=== PATIENT | female | born 1985 | race Caucasian/White ===

== ENCOUNTER 2020-03-13 01:33 | Emergency (ER) | payer BC, SELFPAY ==
[2020-03-13 01:36] VITALS: BP 119/95; PULSE 83; RESP 18; TEMP 36.8; O2SAT 100
--- NOTE | 2020-03-13 02:09 | ED.FEMALEGU ---
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 Patient states she was advised she had demise on ultrasound at EXECUTIVE VICE PRESIDENT AND CHIEF FINANCIAL OFFICER office last week and advised she was going to have a miscarriage. Patient states she started having cramping and bleeding last night and shortly after midnight had her miscarriage. Since that time, patient has been having significant bleeding with clots. Patient contacted assistant account manager who advised she come to the emergency department for evaluation of her bleeding. Patient states bleeding is actually starting to slow down now. She complains of cramping, predominantly in her low back. Patient reports nausea but denies any vomiting. MD elicited complaint: vaginal bleeding Pertinent past history: prior miscarriages Onset (ago): hour(s) Location of symptoms: suprapubic and low back Quality of pain: cramping Consistency: constant Vaginal bleeding: heavy, clots and POC/tissue (Passed at home) Associated symptoms: nausea Patient : Yes Related Data : 9 Para: 5 Total number of abortions (spontaneous and elective): 4 Home Medications Medication Instructions Recorded Confirmed albuterol sulfate 2 puff INHALATION Q4H PRN 10/29/19 11/02/19 Allergies Allergy/AdvReac Type Severity Reaction Status Date / Time Penicillins Allergy Mild RASH/DIFFICULTY Verified 03/13/20 04:32 BREATHING Review of Systems Review of Systems: All systems reviewed & are unremarkable except as noted in HPI and below PMFSH Past Medical History Medical History Asthma Spontaneous Surgical History Surgical History History of dilatation and curettage Social History Social History Smoking status: Never smoker Exam Const: General: cooperative, no acute distress and alert Nutritional Appearance: well nourished Orientation/consciousness: patient oriented x3 Limitations: no limitations HENMT: Mouth: Yes lip normal and Yes moist mucous membranes Resp: Effort & Inspection: normal respiratory effort Auscultation: clear to auscultation bilaterally Cardio: Rate: regular rate Rhythm: regular rhythm GI: GI Palp: Yes Soft to palpation and Yes Tenderness to palpation present (GI) (Mild suprapubic) Auscultation: normal bowel sounds : External Female Exam: normal external appearance Speculum Exam - Vagina: vaginal bleeding (Minimal dark red) Speculum Exam - Cervix: Cervical os closed Skin: General skin exam: normal color Neuro: General: patient oriented x3 Cognition (Neuro): normal cognition Speech: normal speech Extrem: General: normal to inspection, full ROM and no clubbing, cyanosis or edema Psych: Mental Status: mental status grossly normal Affect: normal affect Attitude: cooperative Course Course Emergency Course: Patient with resolution of her heavy bleeding status post miscarriage. Patient given RhoGam in the emergency department. Advised importance of EXECUTIVE VICE PRESIDENT AND CHIEF FINANCIAL OFFICER follow-up for serial hCG levels and further care. Vital Signs Vital signs: Vital Signs Temperature 98.2 F 03/13/20 01:36 Pulse Rate 83 03/13/20 01:36 Respiratory Rate 18 03/13/20 01:36 Blood Pressure 119/95 H 03/13/20 01:36 Pulse Oximetry 100 03/13/20 01:36 Temperature 98.2 F 03/13/20 01:36 Pulse Rate 88 03/13/20 02:12 Respiratory Rate 18 03/13/20 01:36 Blood Pressure 104/74 03/13/20 02:12 Pulse Oximetry 100 03/13/20 01:36 MDM - Female Genitourinary Medical Records Attestation: I reviewed the patient's medical records.
[2020-03-13 02:12] VITALS: BP 103/59; BP 104/74; BP 99/74; PULSE 71; PULSE 77; PULSE 88
[2020-03-13] MEDS: KETOROLAC 30 MG/ML VIAL (*BKC) IV PUSH (02:15)
[2020-03-13] MEDS: LACTATED RINGERS 1,000 ML 999 ML IV CONT (02:16)
[2020-03-13 02:24] LABS: Basophils Percent Auto 0.4 % (0.2-1.2); Eosinophils Absolute Auto 0.1 K/mm3 (0-0.3); Eosinophils Percent Auto 0.8 % (0-4.4); Hematocrit 37.8 % (37.0-47.0); Hemoglobin 12.6 g/dL (12.0-15.0); Immature Granulocyte Absolute 0.02 K/mm3 (0.00-0.031); Immature Granulocyte Percent A 0.3 % (0-0.5); Lymphocytes Absolute Auto 1.98 K/mm3 (0.9-3.2); Lymphocytes Percent Auto 25.8 % (18.3-44.2); Mean Corpuscular HGB Conc 33.3 g/dl (32-36); Mean Corpuscular Volume 86.9 fl (80-100); Mean Platelet Volume 9.7 fl (7.4-10.4); Monocytes Absolute Auto 0.6 K/mm3 (0.1-0.6); Monocytes Percent Auto 7.8 % (2.6-8.5); Neutrophils Percent Auto 64.9 % (45.5-73.1); Platelet Count Result 253 k/mm3 (150-375); Red Blood Count 4.35 M/mm3 (4.2-5.4); Red Cell Distribution Width 12.6 % (11.5-14.5); White Blood Count 7.7 K/mm3 (4.5-10.0)
[2020-03-13 02:27] LABS: Blood Urea Nitrogen 9 mg/dL (7-17); Carbon Dioxide 26 mmol/L (22-30); Chloride 104 mmol/L (98-107); Estimated CRCL calculation 102 ml/min; Estimated Glomerular Filt Rate > 60; Glucose 91 mg/dL (65-105); Potassium 3.7 mmol/L (3.4-5.0); Sodium 137 mmol/L (137-145)
[2020-03-13] MEDS: RHO(D) IMMUNE GLOBULIN 300 MCG SYRINGE IM (04:15)
[2020-03-13 04:41] VITALS: BP 112/70; PULSE 67; RESP 16; O2SAT 98
== END 2020-03-13 04:42 | disposition home or self-care (01) ==
PROVIDERS: Emergency Provider Emergency Medicine
DX: O03.9 Complete or unspecified spontaneous abortion without complication (principal); J45.909 Unspecified asthma, uncomplicated
CPT/HCPCS: 36415; 80048; 84702; 85025; 85461; 90384; 96361; 96372; 96374; 99284; J1885; J2790; J7120

== ENCOUNTER 2020-03-17 00:35 | Day surgery (SDC) | payer BC, SELFPAY ==
[2020-03-14 15:05] VITALS: BMI 22.8
[2020-03-17] MEDS: LACTATED RINGERS 1,000 ML 30 ML IV CONT (09:30)
[2020-03-17] MEDS: IBUPROFEN IV 800 MG/200 ML 800 MG/200 ML BAG 400 MG IVPB (09:35)
--- NOTE | 2020-03-17 09:42 | P.PNAN_ITS ---
Anes - Initial Pre Proc Eval Procedure: Operation Date: 03/17/20 11:00 Proposed Procedures p Suction Dilation and Curettage - Sunil Glasgow MD Date/Time: 03/17/20 09:42 Surgeon: Sunil Glasgow MD Pre Op Diagnosis: missed AB Patient Data Age: 35 Gender: F Height: 5 ft 2 in Weight: 56.7 kg Allergies Allergy/AdvReac Type Severity Reaction Status Date / Time Penicillins Allergy Mild RASH/DIFFICULTY Verified 03/14/20 15:06 BREATHING Home Medications Medication Instructions Recorded Confirmed Type albuterol sulfate 2 puff INHALATION Q4H PRN 10/29/19 03/14/20 History Patient hx anesthesia problems: none Family hx anesthesia problems: none [facility] Past Medical History Medical History Asthma Spontaneous Surgical History Surgical History History of dilatation and curettage Social History Social History Smoking status: Never smoker Anes - Eval Final PreProcedure Day of Procedure 03/17/20 09:42 Patient weight: normal Heart: regular rate and rhythm Lungs: clear to auscultation Airway: Mallampati scale class II Neurological: alert and oriented Last oral intake: >/= 8 hours ASA classification: II Emergent: no Anesthetic plan: proceed Anesthesia type and monitoring: general GIVS and standard monitoring Informed Consent: The patient's anesthetic plan and its attendant risks and benefits were discussed with the patient/family/POA. Questions were solicited and answers provided to the satisfaction of the patient/family/POA.
[2020-03-17 09:45] VITALS: BP 107/59; PULSE 70; RESP 16; TEMP 36.4; O2SAT 100
--- NOTE | 2020-03-17 09:50 | PM.IMHP ---
H&P: HPI History of Present Illness Chief complaint: missed AB Narrative: Malou Euceda is a 35 year old female with the incomplete . We have agreed to proceed with suction D&C. She understands the risks. She understands that injuries may occur that result in more surgery, hospitalization, severe illness. She understands there is risk of infection and hemorrhage. Review of Systems Constitutional: Constitutional: Reports no additional constitutional complaints, Denies fatigue, Denies headache(s), Denies lethargy and Denies weakness Eyes: Eyes: Reports no additional eye complaints, Denies blurry vision and Denies photophobia ENT: Reports as per HPI, Denies headache(s) and Denies neck pain Cardiovascular: Cardiovascular: Denies chest pain, Denies diaphoresis, Denies leg edema, Denies palpitations and Denies dyspnea Respiratory: Respiratory: Denies hemoptysis, Denies dyspnea and Denies wheezing Gastrointestinal: Gastrointestinal: Denies abdominal pain, Denies melena, Denies bloating, Denies hematochezia, Denies nausea and Denies vomiting Genitourinary: Genitourinary: Reports no additional female genitourinary complaints Musculoskeletal: Musculoskeletal: Denies joint swelling, Denies neck pain, Denies numbness and Denies stiffness Neurologic: Denies Abnormal speech present, Denies confusion, Denies headache(s), Denies numbness and Denies weakness Psychiatric: Psychiatric: Denies anxiety, Denies confusion, Denies depression, Denies homicidal ideation and Denies suicidal ideation Endocrine: Endocrine: Denies fatigue and Denies palpitations Allergic/Immunologic: Allergic/Immunologic: Denies wheezing PMFSH Past Medical History Medical History Asthma Spontaneous Surgical History Surgical History History of dilatation and curettage Social History Social History Smoking status: Never smoker Meds Home Medications and Allergies Home Medications Medication Instructions Recorded Confirmed Type albuterol sulfate 2 puff INHALATION Q4H PRN 10/29/19 03/17/20 History Allergies Allergy/AdvReac Type Severity Reaction Status Date / Time Penicillins Allergy Mild RASH/DIFFICULTY Verified 03/14/20 15:06 BREATHING Vital Signs Vital Signs - 24 hr 03/17/20 09:45 Temperature 97.5 F L Pulse Rate 70 Respiratory Rate 16 Blood Pressure 107/59 L Pulse Oximetry 100 Exam Const: General: healthy appearing, comfortable and no acute distress; No confusion Orientation/consciousness: No confusion Eyes: Direct Ophthalmoscopy: No photophobia Resp: Auscultation: clear to auscultation bilaterally, no rales, no rhonchi and no wheezes Cardio: Rate: regular rate Heart sounds: no click, no murmurs and no rubs GI: Inspection: non-distended GI Palp: No abdominal tenderness Auscultation: normal bowel sounds Neuro: General: No confusion Speech: No Abnormal speech present Extrem: General: normal to inspection, no pedal edema and no calf tenderness Assessment and Plan Assessment and plan (1) Missed : Code(s): O02.1 - Missed Status: Acute Assessment and Plan: This patient is a 35-year-old multiparous female with a missed . We have agreed to perform suction D&C. She understands the risks, benefits, and alternatives. She has completed the informed consent process and is ready to proceed.
[2020-03-17 10:01] LABS: Hematocrit 37.5 % (37.0-47.0); Hemoglobin 12.3 g/dL (12.0-15.0)
[2020-03-17 10:28] VITALS: BP 98/54; PULSE 65; RESP 14; O2SAT 100
--- NOTE | 2020-03-17 10:36 | P.OP_ITS ---
Procedure Note - Detailed Date of procedure: 03/17/20 Pre-op diagnosis: missed AB Post-op diagnosis: same Procedure performed: Suction D&C Description of procedure: The patient was taken the operating room. She has prepped and draped in dorsal lithotomy position after induction of mac anesthesia. A speculum was placed in the vagina. The cervix was grasped with a tenaculum. The cervix was injected at 3 and 9:00 a.m. with 1% lidocaine. The cervix was dilated up to 8 mm using Funes dilators. An 8 curved plastic suction curette was then applied to the intrauterine cavity. All of the surfaces in the intrauterine cavity were curettage under VAC. A sharp medium-size curette was then used to curettage all the surfaces to confirmed the removal of all the products conception. When all surfaces for bleed to be clean the curette was r emoved. The suction curette was then reapplied to remove all the debris. The procedure was terminated. The tenaculum was removed. The speculum was removed. The patient tolerated the procedure well. She was taken recovery room in stable condition. Anesthesia: MAC Surgeon: Sunil Glasgow MD Estimated blood loss (mL): 25 Drains: No Packing: No Pathology: yes Complications: No immediate complications Condition: stable Disposition: PACU Findings: Normal vulva vagina and cervix. The moderate amounts of products conception. 8 cm uterus.
--- NOTE | 2020-03-17 10:40 | SUR.PHASEII ---
1030; PT RESTING QUIETLY ON STRETCHER IN ROOM. SPOUSE AT SIDE.
[2020-03-17 11:00] VITALS: BP 101/49; PULSE 61; RESP 16; O2SAT 100
[2020-03-17 11:30] VITALS: BP 99/63; PULSE 62; RESP 14
--- NOTE | 2020-03-17 12:26 | SUR.PREOP ---
0914- SPOKE WITH DR. BRADY ABOUT PT RECEIVING RHOGRAM SHOT ON FRIDAY EVENING IN THE ED AT [facility]. DR. BRADY STATED PT DOES NOT NEED A REPEAT DOSE TODAY AFTER PROCEDURE. OR NURSE UPDATED DURING REPORT.
== END 2020-03-17 12:07 | disposition home or self-care (01) ==
PROVIDERS: Visit Provider Obstetrics & Gynecology
PROC: (CPT 59820; principal; 2020-03-17 11:00)
DX: O02.1 Missed abortion (principal); J45.909 Unspecified asthma, uncomplicated
CPT/HCPCS: 59820; 36415; 85014; 85018; 85461; 86880; 86902; 88305; A9270; J1741; J2250; J2405; J2704; J3010; J7120

== ENCOUNTER 2020-10-26 13:48 | Emergency (ER) | payer BC, SELFPAY ==
[2020-10-26] VITALS (12 sets, daily range): BP systolic 98–139; BP diastolic 45–78; PULSE 68–99; RESP 16–18; TEMP 36.3; O2SAT 100
--- NOTE | ~2020-10-26 | US_ITS ---
EXAMINATION: US OB <= 14 weeks fetus DATE: 10/26/2020 14:49 INDICATION: Vaginal bleeding TECHNIQUE: Real-time transabdominal and transvaginal obstetric ultrasound. FINDINGS: No prior studies for comparison. The uterus measures 11.3 x 8.5 x 7.5 cm. There is a small subchorionic hemorrhage adjacent to the ges tational sac measuring 9 x 8 x 6 mm. There is an intrauterine gestational sac, with pole identi fied. The crown rump length measures 4.88 cm, which correlates with a estimated gestational age of 1 1 weeks 5 days. heart tones are identified measuring 157 BPM. There is a small 1.4 cm corpus luteal cyst of the right ovary. IMPRESSION: 1. SL IUP with an EGA of 11 weeks, 5 days (EDC by current ultrasound of 05/12/2021). 2: Small subchorionic hemorrhage. Reviewed, dictated and finalized at location A. USTER ENGINEER IMPRESSION: 1. SL IUP with an EGA of 11 weeks, 5 days (EDC by current ultrasound of 021). 2: Small subchorionic hemorrhage.
--- NOTE | 2020-10-26 14:19 | PC.NURSE ---
Pt to ultrasound.
[2020-10-26 14:57] LABS: Basophils Percent Auto 0.2 % (0.2-1.2); Eosinophils Percent Auto 0.2 % (0-4.4); Hematocrit 38.1 % (37.0-47.0); Hemoglobin 13.1 g/dL (12.0-15.0); Immature Granulocyte Absolute 0.01 K/mm3 (0.00-0.031); Immature Granulocyte Percent A 0.1 % (0-0.5); Lymphocytes Absolute Auto 1.86 K/mm3 (0.9-3.2); Lymphocytes Percent Auto 22.8 % (18.3-44.2); Mean Corpuscular HGB Conc 34.4 g/dl (32-36); Mean Corpuscular Hemoglobin 29.2 pg (26-34); Mean Platelet Volume 9.9 fl (7.4-10.4); Monocytes Absolute Auto 0.6 K/mm3 (0.1-0.6); Monocytes Percent Auto 7.1 % (2.6-8.5); Neutrophils Absolute Auto 5.7 K/mm3 (1.3-6.7); Neutrophils Percent Auto 69.6 % (45.5-73.1); Platelet Count Result 267 k/mm3 (150-375); Red Blood Count 4.48 M/mm3 (4.2-5.4); Red Cell Distribution Width 12.9 % (11.5-14.5); White Blood Count 8.2 K/mm3 (4.5-10.0)
[2020-10-26 15:06] LABS: Prothrombin Time 13.4 Seconds (11.1-14.7)
[2020-10-26 15:07] LABS: Partial Thromboplastin Time 24.4 SECONDS (22.3-36.8)
[2020-10-26 15:10] LABS: Add Urine Microscopic? YES; Amorphous Sediment Urine Few; Appearance Urine Clear (Clear); Bacteria Urine Trace /hpf; Bilirubin Urine Negative (Negative); Blood Urine 3+ (Negative); Color Urine Yellow (Yellow); Glucose Urine UA Negative (Negative); Ketones Urine Negative (Negative); Leukocyte Esterase Ur Negative LEU/UL (Negative); Mucus Urine Few /lpf; Nitrate Urine Negative (Negative); Protein Urine 1+ mg/dL (Negative); RBC Urine >75 /hpf (0-2); Specific Grav Ur 1.011 (1.001-1.035); Squamous Epithelial Cell Urine Rare /hpf (Few); Urobilinogen Urine Negative mg/dL (<2.0); WBC Urine 0-3 /hpf
[2020-10-26 15:14] LABS: Alanine Aminotransferase 15 U/L (4-35); Albumin Level 4.3 g/dL (3.5-5.1); Alkaline Phosphatase 38 U/L (38-126); Anion Gap 10 mmol/L (8-16); Aspartate Amino Transferase 28 U/L (14-36); Bilirubin,Total 0.5 mg/dL (0.2-1.3); Blood Urea Nitrogen 8 mg/dL (7-17); Calcium 9.2 mg/dL (8.4-10.2); Carbon Dioxide 23 mmol/L (22-30); Chloride 104 mmol/L (98-107); Estimated CRCL calculation 103 ml/min; Estimated Glomerular Filt Rate > 60; Glucose 100 mg/dL (65-105); Potassium 3.9 mmol/L (3.4-5.0); Sodium 137 mmol/L (137-145)
[2020-10-26] MEDS: SODIUM CHLORIDE 0.9% IV 1,000 ML 999 ML IV CONT (15:58)
--- NOTE | 2020-10-26 16:04 | ED.GENADULT ---
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 Patient states that she felt a pressure-like sensation so she sat on the toilet and questions if she was going to have a bowel movement but instead thin bright red discharge came out. Patient denies any pain or cramping but states she filled a pad in 1-1.5 hours. She states she has not seen her OBGYN Lorenzo/Benjamin yet for this as she was waiting to see if she could get thru the first trimester as she has had 3 miscarriages in the last 2 years around the end of the first trimester.She reports she has an appointment on Friday. She states her last menstrual period was around Aug 05. Patient states that her last miscarriage was in March and she received a RhoGam injection at that time because her blood type is A-. Related Data Home Medications Medication Instructions Recorded Confirmed No Home Medications 10/26/20 10/26/20 Allergies Allergy/AdvReac Type Severity Reaction Status Date / Time Penicillins Allergy Mild RASH/DIFFICULTY Verified 10/26/20 14:01 BREATHING Review of Systems Review of Systems: Narrative: CONSTITUTIONAL: Denies fever, chills, or sweats. EYES: Denies visual changes, redness, or discharge. ENT: Denies rhinorrhea, congestion, sore throat, or otalgia. CARDIOVASCULAR: Denies chest pain, palpitations, or edema. RESPIRATORY: Denies cough or dyspnea. GASTROINTESTINAL: Denies abdominal pain, nausea, vomiting, or diarrhea. GENITOURINARY: Reports vaginal bleeding denies dysuria or hematuria. SKIN: Denies rash or itching. MUSCULOSKELETAL: Denies back pain, joint pain, or myalgia. NEUROLOGIC: Denies headache, numbness, dizziness, or weakness. PSYCHIATRIC: Denies anxiety or depression. [facility] Past Medical History Medical History (Updated 10/26/20 @ 17:11 by Lor Braxton PA-C) Asthma Spontaneous Surgical History Surgical History History of dilatation and curettage Social History Social History Smoking status: Never smoker Exam Narrative: Exam Narrative: GENERAL: Well-appearing, well-nourished, and in no acute distress. HEAD: Normocephalic, atraumatic. EYES: PERRLA and EOMI. NECK: Supple. No adenopathy or masses. CHEST: Clear to auscultation. No respiratory distress. No wheezes rales or rhonchi HEART: Regular rate and rhythm. No murmur heard. Normal peripheral pulses. ABDOMEN: Soft, nontender, nondistended, normal active bowel sounds. EXTREMITIES: Normal range of motion. No edema. SKIN: Warm, dry, no rash. NEURO: No focal deficits. Alert and oriented x3. PSYCH: Normal mood and affect. Course Vital Signs Vital signs: Vital Signs Temperature 97.3 F L 10/26/20 13:58 Pulse Rate 99 10/26/20 13:58 Respiratory Rate 18 10/26/20 13:58 Blood Pressure 139/67 10/26/20 13:58 Pulse Oximetry 100 10/26/20 13:58 Temperature 97.3 F L 10/26/20 13:58 Pulse Rate 85 10/26/20 14:58 Respiratory Rate 16 10/26/20 15:16 Blood Pressure 112/59 L 10/26/20 16:32 Pulse Oximetry 100 10/26/20 13:58 Medical Decision Making MDM Narrative Medical decision making narrative: Consult with Dr. Ventura who states patient's work-up has been appropriate. I discussed with him that it was difficult to directly visualize patient cervix as patient admits that her cervix is retroverted and she was having trouble tolerating maneuvering of speculum for better visual assessment due to pressure and discomfort. He states the patient can be started on 200 mg of progesterone daily. He also states that patient should receive
[2020-10-26] MEDS: RHO(D) IMMUNE GLOBULIN 300 MCG SYRINGE IM (17:43)
== END 2020-10-26 18:35 | disposition home or self-care (01) ==
PROVIDERS: Physician Assistant; Emergency Provider Emergency Medicine
DX: O46.8X1 Other antepartum hemorrhage, first trimester (principal); Z3A.11 11 weeks gestation of pregnancy
CPT/HCPCS: 36415; 76801; 80053; 81001; 84702; 85025; 85461; 85610; 85730; 90384; 96360; 96372; 99284; J2790; J7030

== ENCOUNTER 2020-11-18 04:29 | Outpatient (CLI) | payer BC, SELFPAY ==
[2020-11-18 19:32] LABS: SARS-CoV-2 RNA PCR Negative
== END 2020-11-18 04:30 | disposition home or self-care (01) ==
LOC: ANHCOVIDDT 04:30
PROVIDERS: Visit Provider Obstetrics & Gynecology
DX: Z01.812 Encounter for preprocedural laboratory examination (principal); Z20.822 Contact with and (suspected) exposure to COVID-19
CPT/HCPCS: C9803; U0003

== ENCOUNTER 2020-11-21 01:03 | Day surgery (SDC) | payer BC, SELFPAY ==
[2020-11-17 16:47] VITALS: BMI 21.7
[2020-11-21] VITALS (7 sets, daily range): BP systolic 82–126; BP diastolic 42–63; PULSE 55–95; RESP 16–20; TEMP 36.5; O2SAT 95–100
[2020-11-21] MEDS: LACTATED RINGERS 1,000 ML 30 ML IV CONT ×2 (13:20→17:01)
[2020-11-21] MEDS: ACETAMINOPHEN 500 MG TABLET 1000 MG PO (13:24)
--- NOTE | 2020-11-21 14:14 | WPDANESEPPF ---
Anes - Initial Pre Proc Eval Procedure: Operation Date: 11/21/20 15:00 Proposed Procedures p Suction Dilation And Curettage - Sunil Glasgow MD Date/Time: 11/21/20 14:14 Surgeon: Sunil Glasgow MD Pre Op Diagnosis: Missed Ab Patient Data Age: 35 Gender: F Height: 5 ft 2 in Weight: 53.98 kg Allergies Allergy/AdvReac Type Severity Reaction Status Date / Time Penicillins Allergy Mild RASH/DIFFICULTY Verified 11/17/20 16:54 BREATHING Home Medications Medication Instructions Recorded Confirmed Type No Home Medications 10/26/20 10/26/20 History Patient hx anesthesia problems: none Family hx anesthesia problems: none [facility] Past Medical History Medical History Asthma Spontaneous Surgical History Surgical History History of dilatation and curettage Social History Social History Smoking status: Never smoker Living arrangements: with family Gender identity (if verbalized by the patient): Female Spiritual care concerns: No Anes - Eval Final PreProcedure Day of Procedure 11/21/20 14:14 Patient weight: normal Heart: regular rate and rhythm Lungs: clear to auscultation Airway: Mallampati scale class II Neurological: alert and oriented Last oral intake: >/= 8 hours ASA classification: II Emergent: no Anesthetic plan: proceed Anesthesia type and monitoring: general GIVS and standard monitoring Informed Consent: The patient's anesthetic plan and its attendant risks and benefits were discussed with the patient/family/POA. Questions were solicited and answers provided to the satisfaction of the patient/family/POA.
--- NOTE | 2020-11-21 14:41 | WPDHPUPDATE1 ---
History and Physical Update Update Date/Time: 11/21/20 14:41 History and Physical has been reviewed, including an updated exam of the patient. There are NO changes in the patient's condition. Risks, benefits, and alternatives have been discussed and questions answered. Patient agrees to proceed with procedure.
--- NOTE | 2020-11-21 14:41 | PM.IMHP ---
H&P: HPI History of Present Illness Date/Time: 11/21/20 14:41 Chief Complaint: Missed miscarriage Narrative: Malou Euceda is a 35 year old female, multiparous, who has a 13 week demise. We have agreed to perform suction D&C. Patient understands the risks. She understands that injuries may occur. She understands that injuries could result in hospitalization, more surgery, severe illness. She understands the possibility hemorrhage and infection. Review of Systems Constitutional: Constitutional: Reports no additional constitutional complaints, Denies fatigue, Denies headache(s), Denies lethargy and Denies weakness Eyes: Eyes: Reports no additional eye complaints, Denies blurry vision and Denies photophobia ENT: Reports as per HPI, Denies headache(s) and Denies neck pain Cardiovascular: Cardiovascular: Denies chest pain, Denies diaphoresis, Denies leg edema, Denies palpitations and Denies dyspnea Respiratory: Respiratory: Denies hemoptysis, Denies dyspnea and Denies wheezing Gastrointestinal: Gastrointestinal: Denies abdominal pain, Denies melena, Denies bloating, Denies hematochezia, Denies nausea and Denies vomiting Genitourinary: Genitourinary: Reports no additional female genitourinary complaints Musculoskeletal: Musculoskeletal: Denies joint swelling, Denies neck pain, Denies numbness and Denies stiffness Neurologic: Denies Abnormal speech present, Denies confusion, Denies headache(s), Denies numbness and Denies weakness Psychiatric: Psychiatric: Denies anxiety, Denies confusion, Denies depression, Denies homicidal ideation and Denies suicidal ideation Endocrine: Endocrine: Denies fatigue and Denies palpitations Allergic/Immunologic: Allergic/Immunologic: Denies wheezing PMFSH Past Medical History Medical History Asthma Spontaneous Surgical History Surgical History History of dilatation and curettage Social History Social History Smoking status: Never smoker Living arrangements: with family Gender identity (if verbalized by the patient): Female Spiritual care concerns: No Meds Home Medications and Allergies Home Medications Medication Instructions Recorded Confirmed Type No Home Medications 10/26/20 10/26/20 History Allergies Allergy/AdvReac Type Severity Reaction Status Date / Time Penicillins Allergy Mild RASH/DIFFICULTY Verified 11/17/20 16:54 BREATHING Exam Const: General: healthy appearing, comfortable and no acute distress; No confusion Orientation/consciousness: No confusion Eyes: Direct Ophthalmoscopy: No photophobia Resp: Auscultation: clear to auscultation bilaterally, no rales, no rhonchi and no wheezes Cardio: Rate: regular rate Heart sounds: no click, no murmurs and no rubs GI: Inspection: non-distended GI Palp: No abdominal tenderness Auscultation: normal bowel sounds Neuro: General: No confusion Speech: No Abnormal speech present Extrem: General: normal to inspection, no pedal edema and no calf tenderness Assessment and Plan Assessment and plan (1) Missed : Code(s): O02.1 - Missed Status: Acute Assessment and Plan: This patient is a 35-year-old female with a 13 week intrauterine demise. We have agreed to perform suction D&C She understands risks, benefits, and alternatives. She has completed the informed consent process is ready to proceed.
[2020-11-21] MEDS: LIDOCAINE HCL 1% LOCAL INJ 10 ML VIAL INFILTRATE (15:05)
--- NOTE | 2020-11-21 15:22 | P.OP_ITS ---
Procedure Note - Detailed Date of procedure: 11/21/20 Pre-op diagnosis: Missed Ab Post-op diagnosis: same Procedure performed: Suction D&C Description of procedure: The patient was taken the operating room. She has prepped and draped in dorsal lithotomy position after induction of mac anesthesia. A speculum was placed in the vagina. The cervix was grasped with a tenaculum. The cervix was injected at 3 and 9:00 a.m. with 1% lidocaine. The cervix was dilated up to 8 mm using Funes dilators. An 8 curved plastic suction curette was then applied to the intrauterine cavity. All of the surfaces in the intrauterine cavity were curettage under VAC. A sharp medium-size curette was then used to curettage all the surfaces to confirmed the removal of all the products conception. When all surfaces for bleed to be clean the curette was r emoved. The suction curette was then reapplied to remove all the debris. The procedure was terminated. The tenaculum was removed. The speculum was removed. The patient tolerated the procedure well. She was taken recovery room in stable condition. Anesthesia: MAC Surgeon: Sunil Glasgow MD Estimated blood loss (mL): 25 Drains: No Packing: No Pathology: yes Complications: No immediate complications Condition: stable Disposition: PACU Findings: Normal vulva vagina and cervix. The large amount of products conception. 13 cm uterus.
--- NOTE | 2020-11-21 15:34 | SUR.PHASEII ---
[address] BRADY IN REGARDS TO PTS BLOOD TYPE A NEGATIVE. PT RECEIVED RHOGAM IN OUR E.D. 10/26/20. DR BRADY STATES PT DOES NOT NEED TO RECEIVE ANOTHER DOSE OF RHOGAM TODAY.
[2020-11-21] MEDS: oxyCODONE HCL (*CRX) 5 MG TAB IR PO (16:14)
[2020-11-21] MEDS: ONDANSETRON INJ 4 MG/2 ML VIAL IV PUSH (16:42)
== END 2020-11-21 17:48 | disposition home or self-care (01) ==
PROVIDERS: Visit Provider Obstetrics & Gynecology
PROC: (CPT 59820; principal; 2020-11-21 15:00)
DX: O02.1 Missed abortion (principal)
CPT/HCPCS: 59820; 88305; A9270; J2250; J2405; J2704; J7120

== ENCOUNTER → 2022-12-20 14:44 | Outpatient (CLI) | payer OTHER, SELFPAY ==
--- NOTE | ~2022-12-20 | US_ITS ---
EXAMINATION: US OB transvaginal DATE: 12/20/2022 15:12 INDICATION: First trimester . Uncertain dates. TECHNIQUE: Real-time transvaginal pelvic ultrasound was performed. COMPARISON: None. FINDINGS: The uterus measures 7.3 x 5.7 x 6.2 cm. There is an intrauterine gestational sac. A yolk sac is iden tified. The crown rump length measures 2.1 cm, which correlates with an estimated gestational age of 8 weeks and 5 day(s) (+/-) 5 day(s). heart motion is identified measuring 165 beats per minute (bpm) by M-mode Doppler. The right ovary measures 2.3 x 3.7 x 2.4 cm. The left ovary measures 2.9 x 2.6 x 2.4 cm. There is no free fluid in the pelvis. IMPRESSION: 1. Single living intrauterine gestation with estimated date of delivery of 07/27/2023. Reviewed, dictated and finalized at location A. EL MOTOR MECHANIC IMPRESSION: 1. Single living intrauterine gestation with estimated date of delivery of 07/11.
== END ==
DX: Z34.91 Encounter for supervision of normal pregnancy, unspecified, first trimester (principal); Z3A.00 Weeks of gestation of pregnancy not specified
CPT/HCPCS: 76817

== ENCOUNTER 2023-02-01 18:15 | Emergency (ER) | payer OTHER, SELFPAY ==
[2023-02-01 18:19] VITALS: BP 116/56; PULSE 93; RESP 16; TEMP 36.9; O2SAT 100
[2023-02-01 19:27] LABS: Basophils Percent Auto 0.3 % (0.2-1.2); Eosinophils Percent Auto 0.3 % (0-4.4); Hematocrit 34.8 % (37.0-47.0); Hemoglobin 11.8 g/dL (12.0-15.0); Immature Granulocyte Absolute 0.04 K/mm3 (0.00-0.031); Immature Granulocyte Percent A 0.4 % (0-0.5); Lymphocytes Absolute Auto 2.19 K/mm3 (0.9-3.2); Lymphocytes Percent Auto 22.4 % (18.3-44.2); Mean Corpuscular HGB Conc 33.9 g/dl (32-36); Mean Corpuscular Hemoglobin 29.9 pg (26-34); Mean Corpuscular Volume 88.3 fl (80-100); Mean Platelet Volume 8.9 fl (7.4-10.4); Monocytes Absolute Auto 0.8 K/mm3 (0.1-0.6); Monocytes Percent Auto 8.3 % (2.6-8.5); Neutrophils Absolute Auto 6.7 K/mm3 (1.3-6.7); Neutrophils Percent Auto 68.3 % (45.5-73.1); Platelet Count Result 270 k/mm3 (150-375); Red Blood Count 3.94 M/mm3 (4.2-5.4); Red Cell Distribution Width 12.5 % (11.5-14.5); White Blood Count 9.8 K/mm3 (4.5-10.0)
--- NOTE | 2023-02-01 20:28 | ED.GENADULT ---
HPI - General Adult General Chief complaint: Vaginal Bleeding Stated complaint: vaginal bleeding Time Seen by Provider: 02/01/23 19:19 History of Present Illness HPI narrative: Patient 38-year-old female who presents the emergency department with chief complaint of vaginal bleeding. The patient reports she is about 15 weeks and noticed that she had some spotting. Patient reports the bleeding has been less than a full pad patient denies pain or cramping patient reports she has had a formal ultrasound with a documented IUP the patient is Rh- and reports that she has had previous doses of RhoGAM but states that her partner is also Rh- and she is unsure of whether she would want to do additional doses of RhoGAM Related Data Home Medications Medication Instructions Recorded Confirmed No Home Medications 10/26/20 11/21/20 Allergies Allergy/AdvReac Type Severity Reaction Status Date / Time Penicillins Allergy Mild RASH/DIFFICULTY Verified 02/01/23 18:16 BREATHING Review of Systems Review of Systems: A 10 system review of systems was completed on the patient and is negative except for what is stated in the HPI. Nursing and ancillary documentation was reviewed. [facility] Past Medical History Medical History (Updated 02/01/23 @ 20:51 by Petar Chang MD) Asthma Spontaneous Surgical History Surgical History History of dilatation and curettage Social History Social History Smoking status: Never smoker Living arrangements: with family Gender identity (if verbalized by the patient): Female Spiritual care concerns: No Exam Narrative: GENERAL: Well-appearing, well-nourished, and in no acute distress. HEAD: Normocephalic, atraumatic. EYES: PERRLA and EOMI. ENT: Nares clear, no rhinorrhea or epistaxis. Mucous membranes moist. NECK: Supple. CHEST: Clear to auscultation. No respiratory distress. HEART: Regular rate and rhythm. No murmur heard. Normal peripheral pulses. ABDOMEN: Soft, nontender, nondistended, normal active bowel sounds. : Cervix is closed scant amount of blood in the vault EXTREMITIES: Normal range of motion. No edema. SKIN: Warm, dry, no rash. NEURO: No focal deficits. Alert and oriented x3. PSYCH: Normal mood and affect. Course Vital Signs Vital signs: Vital Signs Temperature 36.9 C 02/01/23 18:19 Pulse Rate 93 02/01/23 18:19 Respiratory Rate 16 02/01/23 18:19 Blood Pressure 116/56 L 02/01/23 18:19 Pulse Oximetry 100 02/01/23 18:19 Oxygen Delivery Room Air 02/01/23 18:19 Temperature 36.9 C 02/01/23 18:19 Pulse Rate 93 02/01/23 18:19 Respiratory Rate 16 02/01/23 18:19 Blood Pressure 116/56 L 02/01/23 18:19 Pulse Oximetry 100 02/01/23 18:19 Oxygen Delivery Room Air 02/01/23 18:19 Procedures Other Procedure Procedure 1: Other Procedure: Bedside transabdominal ultrasound performed that showed an intrauterine with good cardiac activity. Medical Decision Making MDM Narrative Medical decision making narrative: Differential diagnosis includes threatened , missed Patient's hemoglobin was 11.8 hCG was [address] Patient is Rh- Vital Signs Vital Signs: Vital Signs Temperature 36.9 C 02/01/23 18:19 Pulse Rate 93 02/01/23 18:19 Respiratory Rate 16 02/01/23 18:19 Blood Pressure 116/56 L 02/01/23 18:19 Pulse Oximetry 100 02/01/23 18:19 Oxygen Delivery Room Air 02/01/23 18:19 Temperature 36.9 C 02/01/23 18:19 Pulse Rate 93 02/01/23 18:19 Respiratory Rate 16 02/01/23 18:19 Blood Pressure 116/56 L 02/01/23 18:19 Pulse Oximetry 100 02/01/23 18:19 Oxygen Delivery Room Air 02/01/23 18:19 Lab Data 02/01/23 19:21 Labs: Lab Results 02/01/23 02/01/23 02/01/23 Range/Units 19:21 19
== END 2023-02-01 21:26 | disposition home or self-care (01) ==
PROVIDERS: Preventive Medicine Aerospace Medicine; Emergency Provider Emergency Medicine
DX: O20.0 Threatened abortion (principal); Z3A.15 15 weeks gestation of pregnancy
CPT/HCPCS: 36415; 84702; 85025; 85461; 86850; 86900; 86901; 99284

== ENCOUNTER → 2023-03-31 08:48 | Outpatient (CLI) | payer OTHER, SELFPAY ==
--- NOTE | ~2023-03-31 | US_ITS ---
US OB limited 03/31/2023 09:11 Indication: Evaluate low lying placenta. Procedure: High-resolution Limited obstetrical ultrasound Comparison: 12/20/2022 Findings: There is a single living intrauterine in vertex presentation. Placenta is anterio r and left measuring 4.9 cm to the cervix. Amniotic fluid volume is subjectively normal. heart rate is 146 BPM. Impression: 1: Single living intrauterine in vertex presentation. 2: Anterior placenta without previa. Placental margin to the cervix is 4.9 cm. Reviewed, dictated and finalized at location B. Impression: 1: Single living intrauterine in vertex presentation. 2: Anterior placenta without previa. Placental margin to the cervix is 4.9 cm.
== END ==
PROVIDERS: PCP Obstetrics & Gynecology Gynecology; Visit Provider Obstetrics & Gynecology Gynecology
DX: O44.10 Complete placenta previa with hemorrhage, unspecified trimester (principal); Z3A.00 Weeks of gestation of pregnancy not specified
CPT/HCPCS: 76815

== ENCOUNTER 2023-06-26 10:18 | Outpatient (CLI) | payer OTHER, SELFPAY ==
--- NOTE | ~2023-06-26 | US_ITS ---
EXAMINATION: US OB follow up DATE: 06/26/2023 10:48 INDICATION: Shoulder dysplasia TECHNIQUE: Real-time ultrasound of the pelvis was performed. The interpreting radiologist was not pre sent for the study. COMPARISON: None. FINDINGS: There is a single living fetus in vertex presentation. The placenta is anterior and not low-lying wi th caudal margin >7 cm from the internal cervical os. heart rate is 161 beats per minute (bpm). The amniotic fluid index is 17.9 cm, which is normal (5th%-95%: 7.9-24.9 cm at 35 weeks estimated g estational age). The following biometric data were obtained: BPD: 9.1 cm -> 36 weeks 5 days Head circumference: 32.4 cm -> 36 weeks 4 days Abdominal circumference: 33.0 cm -> 36 weeks 6 days Femur length: 6.7 cm -> 34 weeks 2 days These measurements are concordant. Head circumference to abdominal circumference ratio: 0.98 (normal range 0.92-1.08). Estimated weight: 2870 g (+/-) 430 g or 6 lbs. 5 oz. (+/-) 15 oz. IMPRESSION: 1. Single living fetus in vertex presentation with heart rate of 161 bpm. 2. Normal amniotic fluid index of 17.9 cm. 3. Estimated weight is 67th percentile by Hadlock criteria when 07/27/2023 is used as the estima catherine date of delivery (ROCHELLE). Please correlate with clinical information or earlier ultrasounds for mos t accurate ROCHELLE. Reviewed, dictated and finalized at location A. IMPRESSION: 1. Single living fetus in vertex presentation with heart rate of 161 bpm. 2. Normal amniotic fluid index of 17.9 cm. 3. Estimated weight is 67th percentile by Hadlock criteria when 07/27/2023 is used as the estimated date of delivery (ROCHELLE). Please correlate with clinica l information or earlier ultrasounds for most accurate ROCHELLE.
== END 2023-06-26 10:19 ==
PROVIDERS: PCP Obstetrics & Gynecology Gynecology; Visit Provider Obstetrics & Gynecology Gynecology
DX: Z34.90 Encounter for supervision of normal pregnancy, unspecified, unspecified trimester (principal); Z3A.00 Weeks of gestation of pregnancy not specified
CPT/HCPCS: 76816

== ENCOUNTER 2023-07-10 10:12 | Outpatient (CLI) | payer OTHER, SELFPAY ==
[2023-07-10] VITALS (7 sets, daily range): BP systolic 119–136; BP diastolic 65–76; PULSE 71–88; BMI 28.0
[2023-07-10 10:49] LABS: Basophils Percent Auto 0.3 % (0.2-1.2); Eosinophils Percent Auto 0.4 % (0-4.4); Hematocrit 36.4 % (37.0-47.0); Hemoglobin 12.1 g/dL (12.0-15.0); Immature Granulocyte Absolute 0.08 K/mm3 (0.00-0.031); Immature Granulocyte Percent A 0.9 % (0-0.5); Lymphocytes Absolute Auto 1.85 K/mm3 (0.9-3.2); Lymphocytes Percent Auto 20.3 % (18.3-44.2); Mean Corpuscular HGB Conc 33.2 g/dl (32-36); Mean Corpuscular Hemoglobin 29.7 pg (26-34); Mean Corpuscular Volume 89.4 fl (80-100); Mean Platelet Volume 10.4 fl (7.4-10.4); Monocytes Absolute Auto 0.8 K/mm3 (0.1-0.6); Monocytes Percent Auto 8.9 % (2.6-8.5); Neutrophils Absolute Auto 6.3 K/mm3 (1.3-6.7); Neutrophils Percent Auto 69.2 % (45.5-73.1); Platelet Count Result 234 k/mm3 (150-375); Red Blood Count 4.07 M/mm3 (4.2-5.4); Red Cell Distribution Width 12.9 % (11.5-14.5); White Blood Count 9.1 K/mm3 (4.5-10.0)
[2023-07-10 10:55] LABS: Appearance Urine Clear (Clear); Bacteria Urine None Seen /hpf; Bilirubin Urine Negative (Negative); Blood Urine 2+ (Negative); Color Urine Yellow (Yellow); Glucose Urine UA Negative (Negative); Ketones Urine Negative (Negative); Leukocyte Esterase Ur Trace LEU/UL (Negative); Nitrate Urine Negative (Negative); Non Pathogenic Casts 0-2; Protein Urine Negative (Negative); RBC Urine 0-2 /hpf (0-2); Specific Grav Ur 1.008 (1.001-1.035); Squamous Epithelial Cell Urine Occasional /hpf (Few); Urobilinogen Urine 0.2 mg/dL (<2.0); WBC Urine 0-5 /hpf
[2023-07-10 10:56] LABS: Add Urine Microscopic? YES; Creatinine Urine 29.6 mg/dL; Total Protein Urine Random 19 mg/dL; Ur Ttl Prot Creatinine Ratio 0.64 mg/mg (0-0.20)
[2023-07-10 11:06] LABS: Alanine Aminotransferase 15 U/L (6-35); Albumin Level 3.5 g/dL (3.5-5.1); Alkaline Phosphatase 136 U/L (38-126); Anion Gap 6 mmol/L (8-16); Aspartate Amino Transferase 27 U/L (14-36); Bilirubin,Total 0.4 mg/dL (0.2-1.3); Blood Urea Nitrogen 6 mg/dL (7-17); Calcium 9.4 mg/dL (8.4-10.2); Carbon Dioxide 26 mmol/L (22-30); Chloride 102 mmol/L (98-107); Estimated Glomerular Filt Rate > 60; Glucose 90 mg/dL (65-110); Potassium 3.6 mmol/L (3.4-5.0); Sodium 134 mmol/L (137-145); Uric Acid 4.4 mg/dL (2.5-7.5)
--- NOTE | 2023-07-10 11:22 | PC.NURSE ---
Dr. Richmond returned page and informed of reactive NST, BP's, and lab results. Pt to complete 24 hr urine at home, bring back in am and call office 2 hrs later to discuss results.
--- NOTE | 2023-07-10 11:45 | PC.NURSE ---
Pt has ordered lunch and will eat prior to going home.
== END 2023-07-10 12:42 | disposition home or self-care (01) ==
LOC: ANHOBOP 10:17 → ANHOBPP 10:17
PROVIDERS: Visit Provider Obstetrics & Gynecology Gynecology
DX: O13.9 Gestational [pregnancy-induced] hypertension without significant proteinuria, unspecified trimester (principal); Z3A.00 Weeks of gestation of pregnancy not specified
CPT/HCPCS: 36415; 59025; 80053; 81001; 82570; 84156; 84550; 85025; 99199

== ENCOUNTER 2023-07-11 10:55 | Outpatient (NON) | payer OTHER, SELFPAY ==
[2023-07-11 11:15] VITALS: BMI 28.0
[2023-07-11 12:43] LABS: Collection Time Urine 24 HOURS
[2023-07-11 13:04] LABS: Creatinine Urine 57.6 mg/dL; Patient Weight 153 Lbs
[2023-07-11 13:12] LABS: Total Protein Urine Random 20 mg/dL
[2023-07-11 13:37] LABS: Creatinine Clearance Urine 162.8 ml/min (75-125); Total Protein Urine 24 Hr 400 mg/24hr (28-141); Total Volume 24 Hour Urine 2000 ml
== END 2023-07-11 10:56 | disposition home or self-care (01) ==
LOC: ANHOBOP 10:59
PROVIDERS: Visit Provider Obstetrics & Gynecology Gynecology
DX: Z34.90 Encounter for supervision of normal pregnancy, unspecified, unspecified trimester (principal); Z3A.00 Weeks of gestation of pregnancy not specified
CPT/HCPCS: 81050; 82575; 84156

== ENCOUNTER 2023-07-12 06:02 | Inpatient (IN) | payer OTHER, SELFPAY ==
[2023-07-12] VITALS (150 sets, daily range): BP systolic 87–178; BP diastolic 25–145; PULSE 68–158; RESP 16–18; TEMP 36.4–36.6; O2SAT 77–100; BMI 28.2
--- NOTE | 2023-07-12 06:43 | LDADM ---
This patient, Malou Eucead, was admitted to Labor/Delivery/Recovery 106 on 07/12/23 at 06:02. Plans for labor, pain management and were discussed with patient. Patient/family oriented to hospital policies and general routines including ID bracelet, bed and alarms, visiting hours, pain management, procedures, bathroom and other care routines, personal items, smoking policy, room service/diet and guest tray routines, security routines, and visiting hours. Patient/Family are encouraged to report perceived risks to care and to ask questions if they do not understand what they are told or what they should do. See OBIX for further documentation.
[2023-07-12 06:59] LABS: Basophils Percent Auto 0.2 % (0.2-1.2); Eosinophils Absolute Auto 0.1 K/mm3 (0-0.3); Eosinophils Percent Auto 0.7 % (0-4.4); Hematocrit 33.6 % (37.0-47.0); Hemoglobin 11.2 g/dL (12.0-15.0); Immature Granulocyte Absolute 0.06 K/mm3 (0.00-0.031); Immature Granulocyte Percent A 0.7 % (0-0.5); Lymphocytes Absolute Auto 2.21 K/mm3 (0.9-3.2); Lymphocytes Percent Auto 24.2 % (18.3-44.2); Mean Corpuscular HGB Conc 33.3 g/dl (32-36); Mean Corpuscular Hemoglobin 29.9 pg (26-34); Mean Corpuscular Volume 89.8 fl (80-100); Mean Platelet Volume 10.6 fl (7.4-10.4); Monocytes Absolute Auto 0.9 K/mm3 (0.1-0.6); Monocytes Percent Auto 10.1 % (2.6-8.5); Neutrophils Absolute Auto 5.9 K/mm3 (1.3-6.7); Neutrophils Percent Auto 64.1 % (45.5-73.1); Platelet Count Result 232 k/mm3 (150-375); Red Blood Count 3.74 M/mm3 (4.2-5.4); Red Cell Distribution Width 12.8 % (11.5-14.5); White Blood Count 9.1 K/mm3 (4.5-10.0)
--- NOTE | 2023-07-12 08:04 | PM.IMHP ---
H&P: HPI History of Present Illness Date/Time: 07/12/23 08:04 Chief Complaint: pre-eclampsia Narrative: Malou is a 38yo @ 38.2wks (anisa 07/24/23) who presents for induction of labor due to a new diagnosis of pre-eclampsia, with 24 hour urine protein totaling 400mg. She desires the least amount of interventions. She denies FRANKS, SOB, vision changes, RUQ pain. She feels good movements. Having irregular contractions. No vb or lof. Her is complicated by: - Grand multiparity - AMA - Rh neg - Pre-eclampsia without severe features - H/o headaches - FOB w/ beta thalassemia - H/o marginal placenta previa; resolved - H/o recurrent SAB; h/o D&C x4 - H/o shoulder dystocia w/ VAVD during first delivery; x4 since w/o complications Review of Systems Constitutional: Constitutional: Denies chills, Denies fever(s) and Denies headache(s) Eyes: Eyes: Denies change in vision ENT: Denies headache(s) Cardiovascular: Cardiovascular: Denies chest pain and Denies dyspnea Respiratory: Respiratory: Denies dyspnea Genitourinary: Genitourinary: Denies abnormal vaginal bleeding and Denies vaginal discharge Neurologic: Denies headache(s) Psychiatric: Psychiatric: Denies anxiety and Denies depression PMFSH Past Medical History Medical History (Updated 07/12/23 @ 08:31 by Gissel Lucas MD) Asthma Spontaneous Surgical History Surgical History (Updated 07/12/23 @ 08:15 by Gissel Lucas MD) History of dilatation and curettage x4 Family History Family History Grandparent Cancer Social History Social History Smoking status: Never smoker Substance use: never Lack of Transportation: No Lack of Food: Never True Current Housing: I Have Housing Concerned About Future Housing: No Difficulty Paying Gas/Electric Bills: No Difficulty Paying for Meds: No Currently Unemployed: No Education: Associate Degree Difficulty w/ Childcare or Family Care: No Living arrangements: with family Gender identity (if verbalized by the patient): Female Spiritual care concerns: No Meds Home Medications and Allergies Home Medications Medication Instructions Recorded Confirmed Type aspirin 81 mg tablet 81 mg PO DAILY 06/24/23 07/10/23 History cholecalciferol (vitamin D3) 125 125 mcg PO DAILY 06/24/23 07/12/23 History mcg (5,000 unit) tablet (Vitamin D3) magnesium 100 mg capsule 400 mg PO DAILY 06/24/23 07/10/23 History naltrexone 4.5 mg capsule 4.5 mg PO DAILY 06/24/23 07/10/23 History vit#24-iron amino acid 1 tablet PO DAILY 06/24/23 07/10/23 History chelat-folic acid 30 mg-975 mcg tablet Allergies Allergy/AdvReac Type Severity Reaction Status Date / Time Penicillins Allergy Mild RASH/DIFFICULTY Verified 06/24/23 15:34 BREATHING Vital Signs Vital Signs - 24 hr 07/12/23 06:43 07/12/23 06:45 07/12/23 07:00 Temperature 97.7 F Pulse Rate 97 Respiratory Rate 18 Blood Pressure 109/57 L Oxygen Delivery Room Air Exam Const: General: cooperative, no acute distress and obese Nutritional Appearance: obese Orientation/consciousness: patient oriented x3 Resp: Effort & Inspection: normal respiratory effort Cardio: Rate: regular rate GI: GI Palp: No abdominal tenderness : Other: FHT's: 140's/ mod javier/ + accels/ no decels - cat 1 TOCO: ctxs q2-4min Cervix: 4/50/-2 Membranes: AROM, clear 0840 Presentation: cephalic Skin: General skin exam: normal color Neuro: General: patient oriented x3 Extrem: General: normal to inspection Psych: Appearance: grossly normal Affect: normal affect Attitude: cooperative H&P: Results Labs Labs: Short CBC 07/12/23 Range/Units 06:23 WBC 9.1 (4.5-10.0) K/mm3 Hgb 11.2 L (12.0-15.0) g/dL Hct 33.6 L (37.0-47.0) % Plt Count 232 (150-375)
--- NOTE | 2023-07-12 08:45 | WPDHPUPDATE1 ---
History and Physical Update Update Date/Time: 07/12/23 08:45 History and Physical has been reviewed, including an updated exam of the patient. There are NO changes in the patient's condition. Risks, benefits, and alternatives have been discussed and questions answered. Patient agrees to proceed with procedure.
[2023-07-12] MEDS: LACTATED RINGERS 1,000 ML 125 ML IV CONT ×3 (11:14→21:10)
[2023-07-12] MEDS: OXYTOCIN 30 UNITS/NS 500 ML 30 UNITS/500 ML BAG IV CONT (11:14)
--- NOTE | 2023-07-12 14:45 | PM.OBPNLAB ---
Pain Control Date/time seen: 07/12/23 14:45 Pain control: tolerating well Pelvic Exam Dilation (cm): 5 Effacement (%): 70 station: -2 Amniotic membrane status: Ruptured (AROM, clear 0840) Contractions Monitor mode: External Contraction frequency: 4 (-7) Status status: Category l Assessment and Plan Pitocin rate (mU/min): 8 Assessment: induction ongoing Plan: continuous present management
--- NOTE | 2023-07-12 16:15 | WPDANESEPP ---
Anes - Eval Pre Procedure Procedure: Labor epidural Date/Time: 07/12/23 16:15 Surgeon: Yi Preop Diagnosis: Pain during labor Pre Op Diagnosis: Induction of Labor Patient Data Age: 38 Gender: F Height: 1.57 m Weight: 70 kg Last Vital Signs Temp 36.6 C 07/12/23 13:00 Pulse 83 07/12/23 16:15 Resp 18 07/12/23 13:00 BP 117/62 07/12/23 16:15 O2 Del Method Room Air 07/12/23 06:43 Allergies Allergy/AdvReac Type Severity Reaction Status Date / Time Penicillins Allergy Mild RASH/DIFFICULTY Verified 06/24/23 15:34 BREATHING Home Medications Medication Instructions Recorded Confirmed Type aspirin 81 mg tablet 81 mg PO DAILY 06/24/23 07/10/23 History cholecalciferol (vitamin D3) 125 125 mcg PO DAILY 06/24/23 07/12/23 History mcg (5,000 unit) tablet (Vitamin D3) magnesium 100 mg capsule 400 mg PO DAILY 06/24/23 07/10/23 History naltrexone 4.5 mg capsule 4.5 mg PO DAILY 06/24/23 07/10/23 History vit#24-iron amino acid 1 tablet PO DAILY 06/24/23 07/10/23 History chelat-folic acid 30 mg-975 mcg tablet Laboratory Tests 07/12/23 06:23 WBC 9.1 K/mm3 (4.5-10.0) RBC 3.74 L M/mm3 (4.2-5.4) Hgb 11.2 L g/dL (12.0-15.0) Hct 33.6 L % (37.0-47.0) MCV 89.8 fl (80-100) MCH 29.9 pg (26-34) MCHC 33.3 g/dl (32-36) RDW 12.8 % (11.5-14.5) Plt Count 232 k/mm3 (150-375) MPV 10.6 H fl (7.4-10.4) Immature Gran % (Auto) 0.7 H % (0-0.5) Neut % (Auto) 64.1 % (45.5-73.1) Lymph % (Auto) 24.2 % (18.3-44.2) [place] % (Auto) 10.1 H % (2.6-8.5) Eos % (Auto) 0.7 % (0-4.4) Baso % (Auto) 0.2 % (0.2-1.2) Lymph # (Auto) 2.21 K/mm3 (0.9-3.2) [place] # (Auto) 0.9 H K/mm3 (0.1-0.6) Eos # (Auto) 0.1 K/mm3 (0-0.3) Baso # (Auto) 0.0 K/mm3 (0.0-0.1) Abs Immat Gran (auto) 0.06 H K/mm3 (0.00-0.031) Absolute Neuts (auto) 5.9 K/mm3 (1.3-6.7) Absolute Nucleated RBC 0.0 K/mm3 (0.0-0.012) Nucleated RBC % 0.0 % (0.0-0.2) RPR Pending Blood Type A Negative Antibody Screen Negative Patient hx anesthesia problems: none Family hx anesthesia problems: none Results Review: All pre-operative results and documents have been reviewed as part of the pre-operative evaluation. [facility] Past Medical History Medical History Asthma Spontaneous Surgical History Surgical History History of dilatation and curettage x4 Family History Family History Grandparent Cancer Social History Social History Smoking status: Never smoker Substance use: never Lack of Transportation: No Lack of Food: Never True Current Housing: I Have Housing Concerned About Future Housing: No Difficulty Paying Gas/Electric Bills: No Difficulty Paying for Meds: No Currently Unemployed: No Education: Associate Degree Difficulty w/ Childcare or Family Care: No Living arrangements: with family Gender identity (if verbalized by the patient): Female Spiritual care concerns: No Exam Day of Procedure 07/12/23 16:15 Patient weight: normal Heart: regular rate and rhythm Lungs: clear to auscultation Airway: Mallampati scale class II Neurological: alert and oriented
[2023-07-12] MEDS: ONDANSETRON INJ 4 MG/2 ML VIAL IV PUSH (17:16)
[2023-07-12] MEDS: miSOPROStol 200 MCG TABLET 800 MCG (22:23)
--- NOTE | 2023-07-12 22:46 | PM.OBPRVD ---
OB - Delivery Note Procedure Delivery date: 07/12/23 Events: Preeclampsia w/o severe features Induction method: AROM Delivery augmentation: Pitocin Delivery monitor: External FHT and External Uterine Route of delivery: Laceration Description: None Specimen: Yes (placenta) Quantitative Blood Loss (ml): 650 Anesthesia type: Epidural Disposition: Floor [place] Baby Date of : 07/12/23 Time of : 22:13 Weeks of gestation at delivery: 38 (.2) gender: Male presentation: vertex Placenta delivery description: Expressed Cord Vessel Description: 3 Vessels and Delayed Cord Clamping score one minute: 9 score five minutes: 9 Narrative: Malou had a protracted labor course but progressed to complete dilation with strong desire to push. She pushed for 2 contractions with good maternal effort. She delivered the head over intact perineum. No nuchal cord was palpated. She easily delivered the infant's shoulders and body without complication. The infant was immediately placed skin to skin where he was stimulated and good cry was heard. It was requested that we delay the cord clamping for as long as possible, at 3 minutes of life they desire to continue delaying cord clamping. At 4 minutes of life I insisted and proceeded with clamping the cord due to risk of hemorrhage. The umbilical cord was then doubly clamped and cut. A segment of the cord was collected for cord gases. The remaining cord blood was collected for typing. With Pitocin running and gentle downward traction on the cord, the placenta delivered without complications. Bimanual massage with uterine sweep was performed and no membranes were then noted. No other lacerations were identified. The lower uterine segment was found to be atonic and brisk bleeding was noted. I continued bimanual massage while misoprostol 800 mcg was placed rectally and decision was made to proceed with Methergine IM as her blood pressures have been completely normal during the induction and she has a history of asthma. I continued bimanual massage and at this point the estimated blood loss was approximately 450 cc, but was not slowing down. I called for the hemorrhage cart and the Angeli device. The Angeli device was placed at 2230 per manufacture's instructions without difficulty with 120 cc of fluid in the vaginal balloon and the wall suction set to 80mmHg. The uterus was found to be firm and no bleeding around the vaginal balloon was identified. The tubing did partially fill with blood but after close monitoring no further bleeding was noted. An additional IV was placed and CBC and coags were sent. She will get a dose of TXA as well as started on gentamicin and clindamycin. At the end of the procedure the patient's estimated blood loss is approximately 650 cc. Sponge, lap, instrument, needle counts were correct at the end of the procedure. Mom and baby were left bonding in the birthing suite in stable condition. She will remain on L&D for 4 hours of monitoring. [facility] Delivery Billing Delivery Delivery: Delivery Charge
[2023-07-12 23:00] LABS: Hematocrit 35.7 % (37.0-47.0); Hemoglobin 11.6 g/dL (12.0-15.0); Mean Corpuscular HGB Conc 32.5 g/dl (32-36); Mean Corpuscular Hemoglobin 29.7 pg (26-34); Mean Corpuscular Volume 91.5 fl (80-100); Mean Platelet Volume 10.7 fl (7.4-10.4); Platelet Count Result 221 k/mm3 (150-375); Red Cell Distribution Width 13.1 % (11.5-14.5); White Blood Count 9.6 K/mm3 (4.5-10.0)
[2023-07-12] MEDS: OXYTOCIN 30 UNITS/NS 500 ML 30 UNITS/500 ML BAG 125 UNITS IV CONT (23:15)
[2023-07-12 23:21] LABS: Prothrombin Time 13.7 Seconds (11.1-14.7)
[2023-07-12 23:22] LABS: Fibrinogen 421 mg/dl (215-510); Partial Thromboplastin Time 26.8 SECONDS (22.3-36.8)
[2023-07-12] MEDS: TRANEXAMIC ACID 1,000 MG/10 ML AMPUL 1000 MG IV PUSH (23:39)
[2023-07-13] VITALS (10 sets, daily range): BP systolic 101–127; BP diastolic 45–60; PULSE 66–92; RESP 14–18; TEMP 36.2–37.1; O2SAT 97–100
[2023-07-13] MEDS: CLINDAMYCIN 900 MG/D5W 50 ML 900 MG/50 ML PIGGYBACK 50 MG IVPB (01:38)
[2023-07-13] MEDS: ACETAMINOPHEN 500 MG TABLET 1000 MG (01:40)
[2023-07-13] MEDS: OXYTOCIN 30 UNITS/NS 500 ML 30 UNITS/500 ML BAG 125 UNITS IV CONT ×2 (02:41→06:56)
--- NOTE | 2023-07-13 03:20 | OBPPTRN ---
Patient transferred to post room #290 via wheelchair. Support person present. Oriented to unit, room, information board, rooming in, admission packet and security measures. Patient verbalizes understanding.
[2023-07-13] MEDS: IBUPROFEN 600 MG TABLET PO ×3 (03:49→17:13)
[2023-07-13 08:27] LABS: Hematocrit 29.8 % (37.0-47.0); Hemoglobin 9.8 g/dL (12.0-15.0)
--- NOTE | 2023-07-13 08:35 | PM.OBPNVD ---
OB - PN: Subj Subjective Date/time seen: 07/13/23 08:03 Narrative: PPD#1 Malou reports doing well today. She is having cramping and rectal pains; taking the PO meds which are helping. She is tolerating regular diet. No symptoms of pre-eclampsia and BPs have been low/normal. The Angeli system is still in place; output ~100cc since placement and no bleeding around the vaginal balloon. Hancock catheter also remains in place. She has not ambulated yet. She is breast feeding. She does not want her son circumcised (and refused vitamin K). OB - PN: Obj Data Labs 07/13/23 08:14 Labs: Laboratory Results - last 24 hr 07/12/23 22:38 WBC 9.6 RBC 3.90 L Hgb 11.6 L Hct 35.7 L MCV 91.5 MCH 29.7 MCHC 32.5 RDW 13.1 Plt Count 221 MPV 10.7 H PT 13.7 INR 1.0 APTT 26.8 Fibrinogen 421 OB - PN A/P Plan day: 1 Plan: routine care Comments: - 120cc of saline removed from vaginal balloon; wall suctioned discontinued @ 0840-- Angeli device left in place for ~30 minutes and no excessive bleeding noted; fundus remained firm. Therefore the Angeli device was removed @ ~0930 - Antibiotics/pitocin discontinued and hancock catheter removed - H/H with expected drop; will repeat in AM - Will continue to monitor bleeding closely Time Spent With Patient Time: Total time spent is greater than 50% in coordination of care (as documented) at patient's floor/unit and/or counseling patient: Review of Systems Constitutional: Constitutional: Denies chills, Denies fever(s) and Denies headache(s) Eyes: Eyes: Denies change in vision ENT: Denies dizziness and Denies headache(s) Cardiovascular: Cardiovascular: Denies chest pain, Denies palpitations and Denies dyspnea Respiratory: Respiratory: Denies cough and Denies dyspnea Gastrointestinal: Gastrointestinal: Denies nausea and Denies vomiting Neurologic: Denies dizziness and Denies headache(s) Endocrine: Endocrine: Denies palpitations Exam Const: General: cooperative, healthy appearing, comfortable and no acute distress Orientation/consciousness: patient oriented x3 Resp: Effort & Inspection: normal respiratory effort Auscultation: clear to auscultation bilaterally Cardio: Rate: regular rate GI: Inspection: non-distended GI Palp: No abdominal tenderness and Yes Soft to palpation Auscultation: normal bowel sounds : Other: fundus firm Angeli system in place Urinary Catheter: Urinary Catheter: patent and draining and urine clear Skin: General skin exam: normal color Neuro: General: patient oriented x3 Extrem: General: normal to inspection Psych: Appearance: grossly normal Affect: normal affect Attitude: cooperative
--- NOTE | 2023-07-13 08:45 | PC.NURSE ---
0845-Dr. Lucas here to turn off suction of Angeli. Pt to remain in bed for 30 minutes before d/c of Angeli.
[2023-07-13 09:13] LABS: Gentamicin Random 1.1 ug/mL (5.0-12.0)
[2023-07-13] MEDS: MULTIVIT/MIN/PREN/FOL AC/IRON TABLET 1 TAB PO (10:23)
[2023-07-13] MEDS: DOCUSATE SODIUM 100 MG CAPSULE PO ×2 (10:23→17:12)
[2023-07-13] MEDS: POLYSACCHARIDE IRON COMPLEX 150 MG CAPSULE PO ×2 (10:23→17:12)
[2023-07-13] MEDS: LANOLIN (LANSINOH) 7.5 GM CREAM 1 APPLIC TOPICAL (10:24)
[2023-07-13] MEDS: ACETAMINOPHEN 325 MG TABLET 650 MG PO ×2 (10:24→17:12)
--- NOTE | 2023-07-13 10:37 | PC.NURSE ---
Saline loc in rt FA d/c'd per MD order.
--- NOTE | 2023-07-13 12:13 | WPDANLDPN2 ---
Anes-Prog Note L&D Date/Time: 07/13/23 12:13 Comfortable throughout: labor and delivery Neuraxial method: epidural Epidural/Spinal procedure site: clean & non-tender Neuro status: Neuro function grossly intact. Cardiovascular status: normal Respiratory status: normal Airway patency: baseline Mental status: baseline Post-Op hydration status: normal Vital Signs: Last Vital Signs Temp 36.2 C L 07/13/23 07:52 Pulse 75 07/13/23 07:52 Resp 16 07/13/23 07:52 BP 101/45 L 07/13/23 07:52 Pulse Ox 97 07/13/23 07:52 O2 Del Method Room Air 07/13/23 04:00 Pain score (VAS): 2/10 I/O: Intake & Output 07/12/23 07/13/23 07/13/23 23:59 07:59 15:59 Intake Total 2000 1000 Output Total 550 Balance 2000 450 Post-procedural complaints: none Patient feedback: Patient satisfied with anesthetic care.
--- NOTE | 2023-07-14 04:35 | PM.OBDSVD ---
DS: Admitting Diagnosis Discharge Date 07/14/2023 Admitting Diagnosis Pre-eclampsia AMA Grand multiparity DS: Discharge Diagnosis Discharge Diagnosis (1) Grand multiparity: Code(s): Z64.1 - Problems related to multiparity Status: Acute (2) Pre-eclampsia: Qualifiers: Trimester: third trimester Qualified Code(s): O14.93 - Unspecified pre-eclampsia, third trimester Code(s): O14.90 - Unspecified pre-eclampsia, unspecified trimester Status: Acute (3) hemorrhage: Qualifiers: hemorrhage type: other immediate Qualified Code(s): O72.1 - Other immediate hemorrhage Code(s): O72.1 - Other immediate hemorrhage Status: Acute OB - DS: Summary OB Procedures : NST and Ultrasound OB Procedures Intrapartum: Spontaneous Vag Delivery OB Procedures: : None Peripartum Data Infant Delivery Method: Natural Vaginal Laceration Description: None complications: uterine atony (Angeli hemorrhage device) [place] 1: Gender: Male Disposition of : home Status at Discharge Functional status at discharge: independent ambulation Overall status at discharge: patient is back to baseline Time Spent with Patient Time attestation: Total time spent providing and/or coordinating discharge services: Time spent: Less than 30 minutes Exam Const: General: cooperative, healthy appearing, comfortable and no acute distress Orientation/consciousness: patient oriented x3 Resp: Effort & Inspection: normal respiratory effort Auscultation: clear to auscultation bilaterally Cardio: Rate: regular rate GI: Inspection: non-distended GI Palp: No abdominal tenderness and Yes Soft to palpation Auscultation: normal bowel sounds : Other: fundus firm Skin: General skin exam: normal color Neuro: General: patient oriented x3 Extrem: General: normal to inspection Psych: Appearance: grossly normal Affect: normal affect Attitude: cooperative DS: Data Data Completed and Pending Pending studies at discharge: Pending at discharge 07/12/23 23:23 Surgical [PTH] Routine Labs on day of discharge: Labs from last 24 hours 07/13/23 08:14 Hgb 9.8 L Hct 29.8 L Random Gentamicin 1.1 L Discharge Plan Discharge Attending physician on discharge: Gissel Lucas Discharging Clinician: Gissel Lucas Anticipated Discharge Date/Time: 07/14/23 16:00 Patient Disposition: Home, Self-Care Activity: may shower and pelvic rest Diet: regular Patient Instructions: Bleeding (DC), Vaginal Delivery (DC) Stand Alone Forms: General Discharge Information Follow-up/Referrals: Malou Richmond MD [Physician] - 6 Weeks Discharge Medications: New acetaminophen [Mapap (acetaminophen)] 325 mg Tablet 650 mg PO Q6H PRN (Reason: Mild Pain (1-3) Or Headache) Qty: 60 0RF docusate sodium 100 mg Capsule 100 mg PO BID PRN (Reason: Constipation) Qty: 60 0RF polysaccharide iron complex 150 mg iron Capsule 150 mg PO BIDWM Qty: 120 0RF ibuprofen 600 mg Tablet 600 mg PO Q6H PRN (Reason: Cramping) Qty: 40 0RF Continued magnesium 100 mg Capsule 400 mg PO DAILY cholecalciferol (vitamin D3) [Vitamin D3] 125 mcg (5,000 unit) Tablet 125 mcg PO DAILY Complete 30-975 mg-mcg Tablet 1 tablet PO DAILY naltrexone 4.5 mg Capsule 4.5 mg PO DAILY Discontinued Adult Low Dose Aspirin 81 mg Tablet 81 mg PO DAILY Date of admission: 07/12/23 06:02 Primary Care Provider: UNKNOWN,DOCTOR Admitting Provider: Malou Richmond Attending physician on admission: Malou Richmond Condition: Stable
[2023-07-14 05:31] LABS: Hematocrit 30.1 % (37.0-47.0); Hemoglobin 9.8 g/dL (12.0-15.0)
[2023-07-14] MEDS: POLYSACCHARIDE IRON COMPLEX 150 MG CAPSULE PO (08:25)
[2023-07-14] MEDS: ACETAMINOPHEN 325 MG TABLET 650 MG PO (08:25)
[2023-07-14] MEDS: DOCUSATE SODIUM 100 MG CAPSULE PO (08:25)
[2023-07-14] MEDS: MULTIVIT/MIN/PREN/FOL AC/IRON TABLET 1 TAB PO (08:25)
[2023-07-14] MEDS: IBUPROFEN 600 MG TABLET PO (08:26)
[2023-07-14 08:30] VITALS: BP 109/56; PULSE 73; RESP 18; TEMP 36.4; O2SAT 100
[2023-07-14 11:06] LABS: Rapid Plasma Reagin Non-Reactive (NonReactive)
[2023-07-16 12:50] VITALS: BP 115/53; PULSE 85; RESP 18; TEMP 36.7; O2SAT 100
== END 2023-07-14 12:26 | disposition home or self-care (01) | DRG 807 ==
LOC: ANHOB2 07-14 10:48 → ANHLDR 07-17 09:24 → ANHOB2 07-17 09:24
PROVIDERS: Admitting Provider Obstetrics & Gynecology Gynecology; Visit Provider Obstetrics & Gynecology
DX: O14.04 Mild to moderate pre-eclampsia, complicating childbirth (principal); Z37.0 Single live birth; Z3A.38 38 weeks gestation of pregnancy; O72.1 Other immediate postpartum hemorrhage; O99.52 Diseases of the respiratory system complicating childbirth; J45.909 Unspecified asthma, uncomplicated
CPT/HCPCS: 36415; 59025; 80053; 80170; 81001; 81050; 82570; 82575; 84156; 84550; 85014; 85018; 85025; 85027; 85384; 85610; 85730; 86592; 86850; 86900; 86901; 88307; 99199; A9270; J1580; J2405; J2590; J2795; J7120

== ENCOUNTER 2024-09-04 11:16 | Outpatient (CLI) | payer OTHER, SELFPAY ==
--- NOTE | ~2024-09-04 | US_ITS ---
US OB transvaginal DATE: 09/04/2024 11:40 INDICATION: Determine viability TECHNIQUE: Real-time imaging and Doppler analysis COMPARISON: None FINDINGS: The uterus is retroverted and measures 7.2 cm sagittal, 5.2 cm AP and 6.0 cm transverse dim ension. Live blackwell intrauterine gestation with cardiac motion, with heart rate of 112 bpm. Sa c is identified. [place]-rump length measurement is 0.46 cm, consistent with 6 weeks 1 day estimated gestational age. Approximately 3.5 x 9 x 4.6 mm subchorionic hematoma. Right ovary measures 2.5 x 1.7 x 2.3 cm. Left ovary measures 0.9 x 2.4 x 2.8 cm. Left ovarian 1.8 cm corpus luteum cyst. No abnormal free pelvic fluid collection is noted. IMPRESSION: Small subchorionic hemorrhage Estimated gestational age 6 weeks 1 day Reviewed, dictated and finalized at [facility] Reviewed, dictated and finalized at [facility].
== END 2024-09-04 11:17 | disposition home or self-care (01) ==
LOC: MICIMG 11:17
PROVIDERS: Visit Provider Nurse Practitioner Women's Health
DX: O26.851 Spotting complicating pregnancy, first trimester (principal); O46.8X1 Other antepartum hemorrhage, first trimester; Z3A.01 Less than 8 weeks gestation of pregnancy
CPT/HCPCS: 76817

== ENCOUNTER 2024-09-20 14:14 | Outpatient (CLI) | payer OTHER, SELFPAY ==
--- NOTE | ~2024-09-20 | US_ITS ---
EXAMINATION: US OB transvaginal DATE: 09/20/2024 14:37 INDICATION: Subchorionic hematoma. TECHNIQUE: Real-time transabdominal and transvaginal pelvic ultrasound was performed. COMPARISON: Ultrasound 09/04/2024 FINDINGS: TRANSABDOMINAL ULTRASOUND: The uterus measures 8.3 x 5.6 x 5.9 cm. TRANSVAGINAL ULTRASOUND: There is an intrauterine gestational sac. A yolk sac is identified. The fet al crown rump length measures 8 mm, which correlates with an estimated gestational age of 6 weeks and 5 day(s) (+/-) 4 day(s). heart motion is not identified by M-mode Doppler. There is a small dozier bchorionic hematoma. The right ovary measures 3.0 x 1.6 x 2.9 cm. The left ovary measures 3.7 x 3.2 x 2.4 cm. There is no free fluid in the pelvis. IMPRESSION: 1. demise. Reviewed, dictated and finalized at [facility] CASE MANAGER IMPRESSION: 1. demise.
== END 2024-09-20 14:15 | disposition home or self-care (01) ==
LOC: MICIMG 14:15
PROVIDERS: PCP Obstetrics & Gynecology Gynecology; Visit Provider Obstetrics & Gynecology Gynecology
DX: O36.4XX0 Maternal care for intrauterine death, not applicable or unspecified (principal); Z3A.00 Weeks of gestation of pregnancy not specified
CPT/HCPCS: 76817